=== PATIENT | male | born 1945 | race Caucasian/White ===

== ENCOUNTER 2016-08-29 14:24 | Emergency (ER) | payer MEDICARE, OTHER ==
--- NOTE | 2016-08-29 14:54 | ERPHSYRPT ---
- History of Present Illness Time Seen by Provider: 08/29/16 14:50 Source: patient Exam Limitations: no limitations Patient Subjective Stated Complaint: pt here for high b/p 149/87 at home, and states he feels dizzy. worse when moves, Triage Nursing Assessment: pt walked in with cane, skin w/d ,resp easy, no edema noted, moves all ext well.pain to right side of chest, Physician History: The patient is a 71-year-old male complains of feeling woozy and dizzy for the last couple of days. He has taken his blood pressure over the past few days and last night and this morning he thinks is elevated. He shows me a paper where his blood pressures in the 140s over 70s. He does take high blood pressure medicine. For the last 10 days he has been taking Bactrim that was prescribed by urologist. He had blood work recently by his primary care physician and his PSA was elevated. He saw a urologist who did a ultrasound of his prostate and a urinalysis. No abnormality was found but the urologist decided to place him on tamsulosin and Bactrim. He stopped the tamsulosin 5 days ago and is still experience the dizziness. His past medical history is significant for anxiety, high cholesterol, GERD, and hypertension. Timing/Duration: day(s) (few) Severity: mild Modifying Factors: Improves With: nothing Associated Symptoms: other (woozy) Allergies/Adverse Reactions: No Known Drug Allergies Allergy (Verified 08/29/16 14:34) Home Medications: Alprazolam 0.5 mg PO TIDPRN 09/07/13 [History] Amlodipine Besylate 5 mg [Norvasc 5 mg] 5 mg PO DAILY 09/07/13 [History] Aspirin 81 mg PO DAILY 09/07/13 [History] Lisinopril [Zestril 40 mg] 10 mg PO BID 09/07/13 [History] Omeprazole [Prilosec] 40 mg PO DAILY 09/07/13 [History] Pravastatin Sodium 10 mg PO HS 09/07/13 [History] Carvedilol 6.25 mg [Coreg 6.25 MG] 6.25 mg BID 08/29/16 [History] Hydralazine HCl 25 mg TID 08/29/16 [History] Sulfamethoxazole/Trimethoprim [Bactrim Ds Tablet] 1 ea BID 08/29/16 [History] Tramadol HCl [Ultram] 50 mg BID 08/29/16 [History] Hx Tetanus, Diphtheria Vaccination/Date Given: No Hx Influenza Vaccination/Date Given: Yes Hx Pneumococcal Vaccination/Date Given: Yes Immunizations Up to Date: Yes - Review of Systems Constitutional: No Fever, No Chills Eyes: No Symptoms Ears, Nose, & Throat: No Symptoms Respiratory: No Cough, No Dyspnea Cardiac: No Chest Pain, No Edema, No Syncope Abdominal/Gastrointestinal: No Abdominal Pain, No Nausea, No Vomiting, No Diarrhea Genitourinary Symptoms: No Dysuria Musculoskeletal: No Back Pain, No Neck Pain Skin: No Rash Neurological: Dizziness Psychological: No Symptoms Endocrine: No Symptoms Hematologic/Lymphatic: No Symptoms Immunological/Allergic: No Symptoms All Other Systems: Reviewed and Negative - Past Medical History Pertinent Past Medical History: Yes Neurological History: TIA ENT History: No Pertinent History Cardiac History: Hypertension Respiratory History: No Pertinent History Endocrine Medical History: No Pertinent History Musculoskeletal History: Osteoarthritis GI Medical History: No Pertinent History History: No Pertinent History Psycho-Social History: No Pertinent History Male Reproductive Disorders: No Pertinent History - Past Surgical History Past Surgical History: Yes Neuro Surgical History: No Pertinent History Cardiac: No Pertinent History Respiratory: No Pertinent History Gastrointestinal: No Pertinent History Genitourinary: No Pertinent History Musculoskeletal: Orthopedic Surgery Male Surgical History: No Pertinent History Other Surgical History: TONSILLECTOMY - Social History Smoking Status: Current some day smoker How long have you smoked: 30 Exposure to second hand smoke: Yes Alcohol Use: Socially Drug Use: none Patient Lives Alone: No Significant Family History: hypertension - Nursing Vital Signs Nursing Vital Signs: Initial Vital Signs Temperature 98.4 F Temperature Source Oral Pulse Rate 53 Respiratory Rate 16 Blood Pressure [Right Arm] 106/67 Pain Intensity 0 - Physical Exam General Appearance: no apparent distress, alert Eye Exam: PERRL/EOMI, eyes nml inspection Ears, Nose, Throat Exam: normal ENT inspection, TMs normal, pharynx normal, moist mucous membranes Neck Exam: normal inspection, non-tender, supple, full range of motion Respiratory Exam: normal breath sounds, lungs clear, No respiratory distress Cardiovascular Exam: regular rate/rhythm, normal heart sounds, normal peripheral pulses Gastrointestinal/Abdomen Exam: soft, normal bowel sounds, No tenderness, No mass Rectal Exam: not done Back Exam: normal inspection, normal range of motion, No CVA tenderness, No vertebral tenderness Extremity Exam: normal inspection, normal range of motion, pelvis stable Neurologic Exam: alert, oriented x 3, cooperative, normal mood/affect, nml cerebellar function, nml station & gait, sensation nml, No motor deficits Skin Exam: normal color, warm, dry, No rash Lymphatic Exam: No adenopathy SpO2 Interpretation: normal SpO2: 96 Oxygen Delivery: Room Air Ordered Tests: Active Orders 24 hr Category Date Time Status BMP Stat Lab 08/29/16 15:10 Completed CBC W DIFF Stat Lab 08/29/16 15:10 Completed UA Stat Lab 08/29/16 16:00 Completed Lab/Rad Data: Laboratory Result Diagrams 08/29/16 15:10 08/29/16 15:10 Laboratory Results 08/29/16 08/29/16 08/29/16 Range/Units 16:00 15:10 15:10 WBC 4.0 (4.0-10.5) K/mm3 RBC 4.00 L (4.1-5.6) M/mm3 Hgb 11.7 L (12.5-18.0) gm/dl Hct 35.1 L (42-50) % MCV 87.8 (78-100) fl MCH 29.2 (26-32) pg MCHC 33.3 (32-36) g/dl RDW 12.9 (11.5-14.0) % Plt Count 190 (150-450) K/mm3 MPV 9.9 H (6-9.5) fl Gran % 48.6 (36.0-66.0) % Lymphocytes % 41.8 (24.0-44.0) % Monocytes % 7.8 (0.0-12.0) % Eosinophils % 1.3 (0.00-5.0) % Basophils % 0.5 (0.0-0.4) % Basophils # 0.02 (0-0.4) Sodium 137 (136-145) mEq/L Potassium 3.7 (3.5-5.1) mEq/L Chloride 105 (98-107) mEq/L Carbon Dioxide 27.2 (21-32) mEq/L Anion Gap 8.3 (5-15) MEQ/L BUN 15 (9-20) mg/dL Creatinine 1.16 (0.55-1.30) mg/dl Estimated GFR > 60 ML/MIN Glucose 116 H (70-110) MG/DL Calcium 8.9 (8.5-10.1) mg/dL Ur Collection Type VOID Urine Color YELLOW (YELLOW) Urine Appearance CLEAR (CLEAR) Urine pH 6.5 (5-6) Ur Specific [place] 1.010 (1.005-1.025) Urine Protein NEGATIVE (Negative) Urine Glucose (UA) NEGATIVE (NEGATIVE) mg/dL Urine Ketones NEGATIVE (NEGATIVE) Urine Nitrite NEGATIVE (NEGATIVE) Urine Bilirubin NEGATIVE (NEGATIVE) Urine Urobilinogen 0.2 (0-1) mg/dL Urine WBC (Auto) NEGATIVE (NEGATIVE) Urine RBC (Auto) NEGATIVE (0-5) Josh/ul Specimen Received 08/29/16 1600 - Progress Progress: unchanged Counseled pt/family regarding: lab results, diagnosis - Departure Time of Disposition: 16:49 Departure Disposition: Home Clinical Impression: Dizziness Condition: Stable Critical Care Time: No Additional Instructions: Your dizziness may be due to the antibiotic Bactrim that you are taking. I want you to stop taking Bactrim and begin taking ciprofloxacin 500 mg twice a day for 7 days. Your laboratory results were all within normal limits today. Follow-up with the urologist as scheduled. Prescriptions: Ciprofloxacin [Cipro 500 MG] 1 tab PO BID #14 tablet
[2016-08-29 15:18] LABS: BASOPHIL % 0.5 % (0.0-0.4); Eosinophil % 1.3 % (0.00-5.0); Granulocytes % 48.6 % (36.0-66.0); Lymphocytes % 41.8 % (24.0-44.0); Mean Cell Volume 87.8 fl (78-100); Mean Platelet Volume 9.9 fl (6-9.5); Monocytes % 7.8 % (0.0-12.0); Platelet Count 190 K/mm3 (150-450); Red Cell Distribution Width 12.9 % (11.5-14.0)
[2016-08-29 15:19] LABS: Mean Corpuscular Hemoglobin 29.2 pg (26-32)
[2016-08-29 15:38] LABS: ANION GAP 8.3 MEQ/L (5-15); BLOOD UREA NITROGEN 15 mg/dL (9-20); CHLORIDE 105 mEq/L (98-107); Carbon Dioxide 27.2 mEq/L (21-32); Glucose 116 MG/DL (70-110); Potassium 3.7 mEq/L (3.5-5.1); SODIUM 137 mEq/L (136-145)
[2016-08-29 16:16] LABS: COMPLETE URINE MICROSCOPIC? NO; Collection Type VOID; Ph 6.5 (5-6)
[2016-08-29 16:57] VITALS: BP 133/71; PULSE 58; O2SAT 98
== END 2016-08-29 17:02 | disposition home or self-care (01) ==
LOC: ED 14:24
DX: R42 Dizziness and giddiness (principal); E78.00 Pure hypercholesterolemia, unspecified; I10 Essential (primary) hypertension; K21.9 Gastro-esophageal reflux disease without esophagitis; Z79.899 Other long term (current) drug therapy
CPT/HCPCS: 36415; 80048; 81002; 85025; 99283

== ENCOUNTER 2016-10-04 11:09 | Emergency (ER) | payer MEDICARE, OTHER ==
--- NOTE | 2016-10-04 11:43 | ERPHSYRPT ---
- History of Present Illness Time Seen by Provider: 10/04/16 11:29 Source: patient Exam Limitations: no limitations Patient Subjective Stated Complaint: pt states he checked his blood pressure this morning at got a reading of 174/96. Pt states he has since rechecked his blood pressure at home and it was 155.76. pt denies any pain. states he took hi blood pressure pill this morning. Triage Nursing Assessment: pt pink, warm, dry. pt ambulated into ER without difficulty. Physician History: SINCE LAST NIGHT PT HAS HAD A SORE THROAT AND RIGHT EARACHE. ABOUT 3.5 HOURS AGO PT TOOK HIS BP AND IT WAS 174/96. PT DENIES CHEST PAIN, SHORTNESS OF AIR, NAUSEA, ABDOMINAL PAIN. Allergies/Adverse Reactions: No Known Drug Allergies Allergy (Verified 08/29/16 14:34) Home Medications: Alprazolam 0.25 mg PO TIDPRN 09/07/13 [History] Amlodipine Besylate 5 mg [Norvasc 5 mg] 5 mg PO DAILY 09/07/13 [History] Aspirin 81 mg PO DAILY 09/07/13 [History] Lisinopril [Zestril 40 mg] 10 mg PO BID 09/07/13 [History] Omeprazole [Prilosec] 40 mg PO DAILY 09/07/13 [History] Pravastatin Sodium 10 mg PO HS 09/07/13 [History] Carvedilol 6.25 mg [Coreg 6.25 MG] 6.25 mg BID 08/29/16 [History] Hydralazine HCl 25 mg TID 08/29/16 [History] Tramadol HCl [Ultram] 50 mg BID 08/29/16 [History] Hx Tetanus, Diphtheria Vaccination/Date Given: Yes (up to date) Hx Influenza Vaccination/Date Given: Yes Hx Pneumococcal Vaccination/Date Given: Yes Immunizations Up to Date: Yes - Review of Systems Constitutional: No Fever Ears, Nose, & Throat: Ear Pain (RIGHT), Throat Pain Respiratory: No Dyspnea Cardiac: No Chest Pain Abdominal/Gastrointestinal: No Abdominal Pain, No Nausea, No Vomiting Neurological: No Headache Endocrine: No Excessive Sweating All Other Systems: Reviewed and Negative - Past Medical History Pertinent Past Medical History: Yes Neurological History: TIA ENT History: No Pertinent History Cardiac History: Hypertension Respiratory History: No Pertinent History Endocrine Medical History: No Pertinent History Musculoskeletal History: Osteoarthritis GI Medical History: No Pertinent History History: No Pertinent History Psycho-Social History: No Pertinent History Male Reproductive Disorders: No Pertinent History - Past Surgical History Past Surgical History: Yes Neuro Surgical History: No Pertinent History Cardiac: No Pertinent History Respiratory: No Pertinent History Gastrointestinal: No Pertinent History Genitourinary: No Pertinent History Musculoskeletal: Orthopedic Surgery Male Surgical History: No Pertinent History Other Surgical History: TONSILLECTOMY - Social History Smoking Status: Current every day smoker How long have you smoked: 30 Exposure to second hand smoke: Yes Alcohol Use: Socially Drug Use: none Patient Lives Alone: Yes Significant Family History: hypertension - Nursing Vital Signs Nursing Vital Signs: Initial Vital Signs Temperature 98.0 F Temperature Source Oral Pulse Rate 55 Respiratory Rate 18 Blood Pressure [Right Arm] 140/80 Pain Intensity 0 - Physical Exam General Appearance: alert, anxiety Eye Exam: PERRL/EOMI Ears, Nose, Throat Exam: TMs normal, moist mucous membranes, pharyngeal erythema Neck Exam: normal inspection Respiratory Exam: lungs clear Cardiovascular Exam: normal heart sounds Gastrointestinal/Abdomen Exam: soft, normal bowel sounds Back Exam: normal range of motion Extremity Exam: other (RIGHT LEG SHORTER THAN LEFT LEG(ONGOING).), No pedal edema Neurologic Exam: alert, cooperative Skin Exam: warm, dry SpO2 Interpretation: normal SpO2: 97 Oxygen Delivery: Room Air - Course Nursing assessment & vital signs reviewed: Yes - Departure Time of Disposition: 11:44 Departure Disposition: Home Clinical Impression: PHARYNGITIS, ANXIETY Condition: Stable Critical Care Time: No Instructions: Pharyngitis/Tonsillopharyngitis -- Adult Additional Instructions: FOLLOW UP WITH PRIVATE DOCTOR TOMORROW. Prescriptions: Azithromycin 250 mg [Zithromax 250 MG TABLET] 250 mg PO ZPACK #6 tablet
[2016-10-04 11:54] VITALS: BP 126/81; PULSE 78; O2SAT 99
== END 2016-10-04 11:53 | disposition home or self-care (01) ==
LOC: ED 11:09
DX: J02.9 Acute pharyngitis, unspecified (principal); H92.01 Otalgia, right ear; F41.9 Anxiety disorder, unspecified
CPT/HCPCS: 99283

== ENCOUNTER 2017-01-11 13:50 | Emergency (ER) | payer MEDICARE, OTHER ==
--- NOTE | 2017-01-11 14:38 | ERPHSYRPT ---
- History of Present Illness Time Seen by Provider: 01/11/17 14:25 Source: patient Exam Limitations: no limitations Patient Subjective Stated Complaint: Pt states "I took my blood pressure this morning and it was really good but I started to feel bad and I took my pressure again and it was 158/92" Triage Nursing Assessment: Pt alert and oriented X 3, skin pwd. Pt ambulates with assistance from a cane upright steady gait. Pt able to speak in full clear sentences. Physician History: This is a 71-year-old white male with history of TIA, high blood pressure, osteo arthritis. Patient arrives with complaint that he felt dizzy approximately 35 minutes prior to arrival took his blood pressure noted to be 158/90 He states that he had taken his blood pressure medicines prior to arrival He denies any movement disorder. On arrival patient with normal blood pressure patient in no acute distress. Past medical history includes TIA, high blood pressure, osteoarthritis. Past surgical history includes tonsils Timing/Duration: today (35 minutes prior to arriva) Severity: moderate Modifying Factors: Improves With: medication (patient took his blood pressure medications approximately 1-1/2 hour prior to arrival) Associated Symptoms: other (patient states he felt dizzy earlier), No nausea, No vomiting, No abdominal pain, No shortness of breath, No heartburn, No diaphoresis, No cough, No chills, No chest pain, No fever, No headaches, No loss of appetite, No malaise, No rash, No syncope, No seizure, No weakness Allergies/Adverse Reactions: No Known Drug Allergies Allergy (Verified 08/29/16 14:34) Home Medications: Alprazolam 0.25 mg PO TIDPRN 09/07/13 [History] Amlodipine Besylate 5 mg [Norvasc 5 mg] 5 mg PO DAILY 09/07/13 [History] Aspirin 81 mg PO DAILY 09/07/13 [History] Lisinopril [Zestril 40 mg] 10 mg PO BID 09/07/13 [History] Omeprazole [Prilosec] 40 mg PO DAILY 09/07/13 [History] Pravastatin Sodium 10 mg PO HS 09/07/13 [History] Carvedilol 6.25 mg [Coreg 6.25 MG] 6.25 mg BID 08/29/16 [History] Hydralazine HCl 25 mg TID 08/29/16 [History] Tramadol HCl [Ultram] 50 mg BID 08/29/16 [History] Hx Tetanus, Diphtheria Vaccination/Date Given: Yes Hx Influenza Vaccination/Date Given: Yes Hx Pneumococcal Vaccination/Date Given: No Immunizations Up to Date: Yes - Review of Systems Constitutional: No Fever, No Chills Eyes: No Symptoms Ears, Nose, & Throat: No Symptoms Respiratory: No Cough, No Dyspnea Cardiac: No Chest Pain, No Edema, No Syncope Abdominal/Gastrointestinal: No Abdominal Pain, No Nausea, No Vomiting, No Diarrhea Genitourinary Symptoms: No Dysuria Musculoskeletal: No Back Pain, No Neck Pain Skin: No Rash Neurological: Dizziness Psychological: No Symptoms Endocrine: No Symptoms All Other Systems: Reviewed and Negative - Past Medical History Pertinent Past Medical History: Yes Neurological History: TIA ENT History: No Pertinent History Cardiac History: Hypertension Respiratory History: No Pertinent History Endocrine Medical History: No Pertinent History Musculoskeletal History: Osteoarthritis GI Medical History: No Pertinent History History: No Pertinent History Psycho-Social History: No Pertinent History Male Reproductive Disorders: No Pertinent History - Past Surgical History Past Surgical History: Yes Neuro Surgical History: No Pertinent History Cardiac: No Pertinent History Respiratory: No Pertinent History Gastrointestinal: No Pertinent History Genitourinary: No Pertinent History Musculoskeletal: Orthopedic Surgery Male Surgical History: No Pertinent History Other Surgical History: TONSILLECTOMY - Social History Smoking Status: Current every day smoker How long have you smoked: years Exposure to second hand smoke: Yes Alcohol Use: Socially Drug Use: none Patient Lives Alone: Yes Significant Family History: hypertension - Nursing Vital Signs Nursing Vital Signs: Initial Vital Signs Temperature 98.2 F 01/11/17 14:03 Pulse Rate 66 01/11/17 14:03 Respiratory Rate 18 01/11/17 14:03 Blood Pressure 149/85 01/11/17 14:03 O2 Sat by Pulse Oximetry 97 01/11/17 14:03 Pain Scale Pain Intensity 0 - Physical Exam General Appearance: no apparent distress, other (well-developed elderly appearing white male, alert, oriented 3 pleasant and cooperative, in no acute distress) Eye Exam: PERRL/EOMI Ears, Nose, Throat Exam: normal ENT inspection, TMs normal, pharynx normal, moist mucous membranes Neck Exam: normal inspection, non-tender, supple, full range of motion Respiratory Exam: normal breath sounds, lungs clear, No respiratory distress Cardiovascular Exam: regular rate/rhythm, normal heart sounds, normal peripheral pulses Gastrointestinal/Abdomen Exam: soft, normal bowel sounds, No tenderness, No mass Back Exam: normal inspection, normal range of motion, No CVA tenderness, No vertebral tenderness Extremity Exam: normal inspection, normal range of motion, pelvis stable Neurologic Exam: alert, oriented x 3, cooperative, normal mood/affect, nml cerebellar function, nml station & gait, sensation nml, other (patient alert, oriented 3, cranial nerves II throgh XIIintact, soda flaker equal 5 over 5 speech normal no facial droop full range of motion all extremities normal finger to nose no pronator drift sensation intact to all extremities), No motor deficits Skin Exam: normal color, warm, dry, No rash Lymphatic Exam: No adenopathy SpO2 Interpretation: normal (97%) SpO2: 97 Oxygen Delivery: Room Air - Course Nursing assessment & vital signs reviewed: Yes EKG Interpreted by Me: RATE (58 bpm), NORMAL AXIS, Other (EKG: Sinus arrhythmia , 88 bpm, normal axis, no acute ST or T wave changes as December 03, 2015) Ordered Tests: Active Orders 24 hr Category Date Time Status EKG-ER Only STAT Care 01/11/17 14:39 Active Orthostatic Vital Signs STAT Care 01/11/17 14:39 Active CBC W DIFF Stat Lab 01/11/17 15:00 Completed CMP Stat Lab 01/11/17 15:00 Completed Lab/Rad Data: Laboratory Result Diagrams 01/11/17 15:00 01/11/17 15:00 Laboratory Results 01/11/17 01/11/17 Range/Units 15:00 15:00 WBC 4.5 (4.0-10.5) K/mm3 RBC 4.42 (4.1-5.6) M/mm3 Hgb 12.9 (12.5-18.0) gm/dl Hct 38.7 L (42-50) % MCV 87.6 (78-100) fl MCH 29.2 (26-32) pg MCHC 33.3 (32-36) g/dl RDW 13.1 (11.5-14.0) % Plt Count 190 (150-450) K/mm3 MPV 10.3 H (6-9.5) fl Gran % 52.9 (36.0-66.0) % Lymphocytes % 36.6 (24.0-44.0) % Monocytes % 8.0 (0.0-12.0) % Eosinophils % 1.8 (0.00-5.0) % Basophils % 0.7 (0.0-0.4) % Basophils # 0.03 (0-0.4) Sodium 145 (136-145) mEq/L Potassium 3.4 L (3.5-5.1) mEq/L Chloride 109 H (98-107) mEq/L Carbon Dioxide 27.0 (21-32) mEq/L Anion Gap 11.9 (5-15) MEQ/L BUN 12 (9-20) mg/dL Creatinine 0.84 (0.55-1.30) mg/dl Estimated GFR > 60 ML/MIN Glucose 98 (70-110) MG/DL Calcium 8.7 (8.5-10.1) mg/dL Total Bilirubin 0.50 (0.2-1.0) mg/dL AST 15 (15-37) U/L ALT 18 (12-78) U/L Alkaline Phosphatase 66 (46-116) U/L Serum Total Protein 6.6 (6.4-8.2) gm/dL Albumin 3.6 (3.4-5.0) g/dL - Progress Progress: improved Progress Note: 01/11/17 15:51 Patient with no further dizziness labs are normal EKG is no acute changes orthostatic vital signs are normal blood pressure normal will discharge. - Departure Time of Disposition: 15:51 Departure Disposition: Home Clinical Impression: Dizziness, Transient hypertension Condition: Fair Critical Care Time: No Referrals: JOSE SHELTON MD [Primary Care Provider] - Additional Instructions: Return home. Rest. Plenty of fluids. Medications as prescribed by your family doctor. Follow-up with your family doctor. Return for acute distress or for severe symptoms.
[2017-01-11 15:06] LABS: BASOPHIL % 0.7 % (0.0-0.4); Eosinophil % 1.8 % (0.00-5.0); Granulocytes % 52.9 % (36.0-66.0); Lymphocytes % 36.6 % (24.0-44.0); Mean Cell Volume 87.6 fl (78-100); Mean Corpuscular Hemoglobin 29.2 pg (26-32); Mean Platelet Volume 10.3 fl (6-9.5); Platelet Count 190 K/mm3 (150-450); Red Blood Count 4.42 M/mm3 (4.1-5.6); Red Cell Distribution Width 13.1 % (11.5-14.0); White Blood Count 4.5 K/mm3 (4.0-10.5)
[2017-01-11 15:29] LABS: ALBUMIN 3.6 g/dL (3.4-5.0); ALKALINE PHOSPHATASE 66 U/L (46-116); ANION GAP 11.9 MEQ/L (5-15); BLOOD UREA NITROGEN 12 mg/dL (9-20); CHLORIDE 109 mEq/L (98-107); Glucose 98 MG/DL (70-110); Potassium 3.4 mEq/L (3.5-5.1); SGOT/AST 15 U/L (15-37); SGPT/ALT 18 U/L (12-78); SODIUM 145 mEq/L (136-145); Total Protein 6.6 gm/dL (6.4-8.2)
[2017-01-11 15:42] VITALS: O2SAT 97
[2017-01-11 15:59] VITALS: BP 134/78; PULSE 63
== END 2017-01-11 15:57 | disposition home or self-care (01) ==
LOC: ED 13:50
DX: R42 Dizziness and giddiness (principal); I10 Essential (primary) hypertension
CPT/HCPCS: 36415; 80053; 85025; 93005

== ENCOUNTER 2017-04-26 14:05 | Emergency (ER) | payer MEDICARE, OTHER ==
[2017-04-26 14:23] VITALS: O2SAT 98
--- NOTE | 2017-04-26 14:40 | ERPHSYRPT ---
- History of Present Illness Time Seen by Provider: 04/26/17 14:34 Source: patient Exam Limitations: no limitations Patient Subjective Stated Complaint: PT REPORTS HE BECAME UPSET THIS MORNING TOOK HIS BP AT WAS 160/90 SOMETHING AT HOME-DENIES PAIN-DENIES HEADACHE-DENIES NUMBNESS OR TINLGING-DENIES VISUAL CHANGES Triage Nursing Assessment: PT PINK WARM ET [id number] TALKATIVE WITH EASE- RESP EASY ET NONLABORED-RADIAL PULSE REGULAR ET STRONG-ANSWERING ALL QUESTIONS CORRECTLY Physician History: patient presents with high blood pressure. Patient states that he was instructed to go to the ER if his blood pressure is greater than 160/90. Patient had a blood pressure of 162/92 along with mild dizziness. Patient states that his lights went out and he was a little upset at the time. Patient denies any headaches, chest pain, shortness of breath, weakness, palpitations, diaphoresis, nausea, vomiting or diarrhea. Patient also has appointment with his primary care physician in 2 days. States that he did not call his doctor's office before coming to ER. Patient denies any recent illnesses as well Timing/Duration: today Severity: mild Associated Symptoms: other (dizziness), No nausea, No vomiting, No shortness of breath, No heartburn, No diaphoresis, No cough, No chest pain, No headaches, No loss of appetite, No malaise, No syncope, No seizure, No weakness Allergies/Adverse Reactions: No Known Drug Allergies Allergy (Verified 04/26/17 14:24) Home Medications: Alprazolam 0.25 mg PO TIDPRN 09/07/13 [History] Amlodipine Besylate 5 mg [Norvasc 5 mg] 5 mg PO DAILY 09/07/13 [History] Aspirin 81 mg PO DAILY 09/07/13 [History] Lisinopril [Zestril 40 mg] 10 mg PO BID 09/07/13 [History] Omeprazole [Prilosec] 40 mg PO DAILY 09/07/13 [History] Pravastatin Sodium 10 mg PO HS 09/07/13 [History] Carvedilol 6.25 mg [Coreg 6.25 MG] 6.25 mg BID 08/29/16 [History] Hydralazine HCl 25 mg TID 08/29/16 [History] Tramadol HCl [Ultram] 50 mg BID 08/29/16 [History] Hx Tetanus, Diphtheria Vaccination/Date Given: Yes Hx Influenza Vaccination/Date Given: Yes Hx Pneumococcal Vaccination/Date Given: No Immunizations Up to Date: Yes - Review of Systems Constitutional: No Fever, No Chills Eyes: No Symptoms Ears, Nose, & Throat: No Symptoms Respiratory: No Symptoms, No Cough, No Dyspnea Cardiac: No Symptoms, No Chest Pain, No Edema, No Syncope Abdominal/Gastrointestinal: No Symptoms, No Abdominal Pain, No Nausea, No Vomiting, No Diarrhea Genitourinary Symptoms: No Symptoms, No Dysuria Musculoskeletal: No Back Pain, No Neck Pain Skin: No Rash Neurological: Dizziness, No Focal Weakness, No Sensory Changes Psychological: No Symptoms Endocrine: No Symptoms All Other Systems: Reviewed and Negative - Past Medical History Pertinent Past Medical History: Yes Neurological History: TIA ENT History: No Pertinent History Cardiac History: Hypertension Respiratory History: No Pertinent History Endocrine Medical History: No Pertinent History Musculoskeletal History: Osteoarthritis GI Medical History: No Pertinent History History: No Pertinent History Psycho-Social History: No Pertinent History Male Reproductive Disorders: No Pertinent History - Past Surgical History Past Surgical History: Yes Neuro Surgical History: No Pertinent History Cardiac: No Pertinent History Respiratory: No Pertinent History Gastrointestinal: No Pertinent History Genitourinary: No Pertinent History Musculoskeletal: Orthopedic Surgery Male Surgical History: No Pertinent History Other Surgical History: TONSILLECTOMY - Social History Smoking Status: Current every day smoker How long have you smoked: years Exposure to second hand smoke: Yes Alcohol Use: Socially Drug Use: none Patient Lives Alone: Yes Significant Family History: hypertension - Nursing Vital Signs Nursing Vital Signs: Initial Vital Signs Temperature 98.0 F 04/26/17 14:17 Pulse Rate 68 04/26/17 14:17 Respiratory Rate 20 04/26/17 14:17 Blood Pressure 164/90 04/26/17 14:17 O2 Sat by Pulse Oximetry 98 04/26/17 14:17 Pain Scale Pain Intensity 0 - Physical Exam General Appearance: no apparent distress, alert Eye Exam: PERRL/EOMI, eyes nml inspection Ears, Nose, Throat Exam: normal ENT inspection, TMs normal, pharynx normal, moist mucous membranes Neck Exam: normal inspection, non-tender, supple, full range of motion Respiratory Exam: normal breath sounds, lungs clear, No respiratory distress Cardiovascular Exam: regular rate/rhythm, normal heart sounds, normal peripheral pulses Gastrointestinal/Abdomen Exam: soft, normal bowel sounds, No tenderness, No mass Back Exam: normal inspection, normal range of motion, No CVA tenderness, No vertebral tenderness Extremity Exam: normal inspection, normal range of motion, pelvis stable Neurologic Exam: alert, oriented x 3, cooperative, normal mood/affect, nml cerebellar function, nml station & gait, sensation nml, No motor deficits Skin Exam: normal color, warm, dry, No rash Lymphatic Exam: No adenopathy SpO2: 98 Oxygen Delivery: Room Air - Course EKG Interpreted by Me: RATE (63), Sinus Rhythm, NORMAL AXIS, NORMAL INTERVALS, NORMAL QRS, Non-specific ST Changes Ordered Tests: Active Orders 24 hr Category Date Time Status EKG-ER Only STAT Care 04/26/17 14:34 Active - Progress Progress: unchanged Progress Note: 04/26/17 14:38 Will obtain EKG. Patient blood pressure remain in 160 over 90s. Explained to patient that I would not adjust his blood pressure medicine. Also explained to patient that his pressure will fluctuate throughout the day. I would like for his doctor's to adjust his blood pressure medicines accordingly. 04/26/17 15:14 patient continues to be asymptomatic in ED. Will discharge patient with follow- up to his regular doctor. Patient also instructed to return for any headaches, chest pain, palpitations, shortness of breath or any problems. Counseled pt/family regarding: diagnosis - Departure Time of Disposition: 15:15 Departure Disposition: Home Clinical Impression: Hypertension Condition: Stable Critical Care Time: No Referrals: JOSE SHELTON MD [Primary Care Provider] - Instructions: High Blood Pressure (DC) Additional Instructions: Return for any headaches, chest pain, palpitations, shortness of breath or any problems. Follow-up with your doctor as directed
[2017-04-26 15:13] VITALS: BP 147/70; PULSE 55
== END 2017-04-26 16:34 | disposition home or self-care (01) ==
LOC: ED 14:05
DX: I10 Essential (primary) hypertension (principal); Z79.899 Other long term (current) drug therapy
CPT/HCPCS: 93005; 99283

== ENCOUNTER 2017-06-12 13:35 | Emergency (ER) | payer MEDICARE, OTHER ==
[2017-06-12] MEDS ORDERED: TYLENOL 325 MG PO ONE (13:54)
[2017-06-12 13:57] VITALS: BP 155/92; PULSE 78; O2SAT 96
--- NOTE | 2017-06-12 14:00 | ERPHSYRPT ---
- History of Present Illness Time Seen by Provider: 06/12/17 13:49 Source: patient Physician History: CC: fall Hx: 72 y/o patient of Dr Shelton fell while walking on a hill at home. Uses a cane and slipped. He hit the right chest and ribs and has pain in the right ribs. Not short of breath. No other injuries. No abd pain. No head injury or DURON. No neck or back pain. No N/T/W. He did not have syncope. Pain is moderate. He takes BP meds but no blood thinners. Occurred: just prior to arrival Loss of Consciousness: no loss of consciousness Allergies/Adverse Reactions: No Known Drug Allergies Allergy (Verified 06/12/17 13:57) Home Medications: Alprazolam 0.25 mg PO TIDPRN 09/07/13 [History] Amlodipine Besylate 5 mg [Norvasc 5 mg] 5 mg PO DAILY 09/07/13 [History] Aspirin 81 mg PO DAILY 09/07/13 [History] Lisinopril [Zestril 40 mg] 10 mg PO BID 09/07/13 [History] Omeprazole [Prilosec] 40 mg PO DAILY 09/07/13 [History] Pravastatin Sodium 10 mg PO HS 09/07/13 [History] Carvedilol 6.25 mg [Coreg 6.25 MG] 6.25 mg BID 08/29/16 [History] Hydralazine HCl 25 mg TID 08/29/16 [History] Tramadol HCl [Ultram] 50 mg BID 08/29/16 [History] Hx Tetanus, Diphtheria Vaccination/Date Given: Yes Hx Influenza Vaccination/Date Given: Yes Hx Pneumococcal Vaccination/Date Given: No - Review of Systems Constitutional: No Symptoms Eyes: No Vision Changes Respiratory: No Cough, No Dyspnea Cardiac: Chest Pain (right ribs) Abdominal/Gastrointestinal: No Abdominal Pain, No Nausea, No Vomiting Musculoskeletal: Fall, Injury (right ribs), No Back Pain, No Neck Pain Skin: No Rash Neurological: No Focal Weakness, No Headache, No Parasthesia All Other Systems: Reviewed and Negative - Past Medical History Pertinent Past Medical History: Yes Neurological History: TIA ENT History: No Pertinent History Cardiac History: Hypertension Respiratory History: No Pertinent History Endocrine Medical History: No Pertinent History Musculoskeletal History: Osteoarthritis GI Medical History: No Pertinent History History: No Pertinent History Psycho-Social History: No Pertinent History Male Reproductive Disorders: No Pertinent History - Past Surgical History Past Surgical History: Yes Neuro Surgical History: No Pertinent History Cardiac: No Pertinent History Respiratory: No Pertinent History Gastrointestinal: No Pertinent History Genitourinary: No Pertinent History Musculoskeletal: Orthopedic Surgery Male Surgical History: No Pertinent History Other Surgical History: TONSILLECTOMY - Social History Smoking Status: Current every day smoker How long have you smoked: years Exposure to second hand smoke: Yes Alcohol Use: Socially Drug Use: none Patient Lives Alone: Yes Significant Family History: hypertension - Nursing Vital Signs Nursing Vital Signs: Initial Vital Signs Temperature 98.5 F 06/12/17 13:48 Pulse Rate 78 06/12/17 13:48 Respiratory Rate 20 06/12/17 13:48 Blood Pressure 155/92 06/12/17 13:48 O2 Sat by Pulse Oximetry 96 06/12/17 13:48 Pain Scale Pain Intensity 2 - Nikole Coma Score Best Eye Response ([place]): (4) open spontaneously Best Verbal Response ([place]): (5) oriented Best Motor Response ([place]): (6) obeys commands [place] Total: 15 - Physical Exam General Appearance: alert, thin (frail appearing man) Head Injury: no evidence of injury Eye Exam: PERRL/EOMI ENT Exam: airway nml Neck Exam: No mid-line tenderness Respiratory/Chest Exam: chest tenderness (right lateral mid ribs, no crepitus), No decreased breath sounds Cardiovascular Exam: normal heart sounds, regular rate/rhythm Gastrointestinal Exam: soft, No tenderness, No distention Back Exam: normal inspection, normal range of motion, No vertebral tenderness Extremity Exam: normal inspection, normal range of motion Neurologic Exam: alert, oriented x 3, cooperative, sensation nml, No motor deficits Skin Exam: warm, dry, No rash - Course Nursing assessment & vital signs reviewed: Yes - Radiology Exams cxr and right ribs X-ray Interpretation: Teleradiologist Report, Negative, No Fracture, No Pneumothorax Ordered Tests: Active Orders 24 hr Category Date Time Status Cold Application STAT Care 06/12/17 13:54 Active CHEST 2 VIEWS (PA AND LAT) Stat Exams 06/12/17 13:53 Completed RIBS UNILATERAL Stat Exams 06/12/17 13:53 Completed Medication Summary Discontinued Medications Generic Name Dose Route Start Last Admin Trade Name Dang PRN Reason Stop Dose Admin Acetaminophen 650 mg 06/12/17 13:54 06/12/17 14:18 Tylenol 325 Mg PO 06/12/17 13:55 650 mg STAT ONE Administration Acetaminophen Confirm 06/12/17 14:16 Tylenol 325 Mg Administered 06/12/17 14:17 Dose 650 mg .ROUTE .STK-MED ONE - Progress Progress Note: 06/12/17 15:10 APAP given here. Ice pack. He has a cane. Will release with instructions. Counseled pt/family regarding: diagnosis, need for follow-up, rad results - Departure Time of Disposition: 15:10 Departure Disposition: Home Clinical Impression: Fall from ground level Contusion of rib on right side Qualifiers: Encounter type: initial encounter Qualified Code(s): S20.211A - Contusion of right front wall of thorax, initial encounter Condition: Stable Critical Care Time: No Referrals: JOSE SHELTON MD [Primary Care Provider] - Instructions: Bruised Rib, Preventing Falls Additional Instructions: SPRAINS/STRAINS/CONTUSIONS 1. Rest the affected area as much as possible for the next few days. 2. Apply ice to the affected area for 20-30 minutes at a time, several times a day. 3. If you receive an elastic wrap, wear it only while awake for comfort and support. Re-wrap the elastic wrap if it feels too tight or too loose. 4. If swelling is present, elevate the affected part above the level of the heart for at least 2 to 3 days. 5. Use splints, slings, or crutches as instructed. 6. Watch for severe swelling, coldness, numbness, and discoloration of the fingers and toes. See your family physician or return to the emergency department if any of these are noted. Follow up with Dr Shelton next week. Take your normal pain pill as already prescribed. Ice packs off and on. Return for difficulty breathing or concerns.
[2017-06-12] MEDS ORDERED: TYLENOL 325 MG ONE (14:16)
--- NOTE | 2017-06-12 14:45 | XRAY ---
Indication: Right-sided pain following fall. Comparison: December 03, 2015. PA/lateral chest remains hyperinflated and clear again with a few incidental calcified granulomas. Heart is not enlarged. Descending aorta remains tortuous. Bony thorax intact again with mild osteopenia and degenerative changes. Impression: Stable nonacute hyperinflated chest with chronic features.
--- NOTE | 2017-06-12 14:45 | XRAY ---
Indication: Pain following fall. Comparison: September 27, 2013. 2 views of the right ribs again demonstrates mild osteopenia, mild multilevel spinal degenerative spondylosis, and right apical calcified granuloma. No other bony, articular, or soft tissue abnormalities.
== END 2017-06-12 15:18 | disposition home or self-care (01) ==
LOC: ED 13:35
DX: S20.211A Contusion of right front wall of thorax, initial encounter (principal); W18.30XA Fall on same level, unspecified, initial encounter; Y93.01 Activity, walking, marching and hiking; Z79.899 Other long term (current) drug therapy
CPT/HCPCS: 71046; 71100; 99283; A9270-GY

== ENCOUNTER 2017-06-24 13:47 | Emergency (ER) | payer MEDICARE, OTHER ==
[2017-06-24 14:32] VITALS: PULSE 68; O2SAT 98
[2017-06-24 14:37] VITALS: BP 142/76
--- NOTE | 2017-06-24 14:40 | ERPHSYRPT ---
- History of Present Illness Time Seen by Provider: 06/24/17 13:54 Source: patient, family (sister) Patient Subjective Stated Complaint: patietn states he has been having high blood pressure since he started new ant depressant Triage Nursing Assessment: pt alert and orietned x3, able to ambulate with cane , prior injury to left knee wearing brace, barrel chested lung sounds clear, diminished. skin warm dry and intact Physician History: CC: high blood pressure Hx: 72 y/o patient of Dr Shelton and Kwabena. He saw Dr Shelton for awellness check Monday and was prescribed paroxetine. He felt like side effects so called the office and has not taken anymore medication. He has been checking his BP and it has been more and more elevated. Today it was 154/104 so he came to the hospital to have it checked. He has no confusion. Slight headache. No chest pain. Old right rib pain still. No N/V. No fever. He felt some dizziness. He was worried about BP. He has the medication side effect list and has underlined them. Timing/Duration: today Allergies/Adverse Reactions: No Known Drug Allergies Allergy (Verified 06/12/17 13:57) Home Medications: Alprazolam 0.25 mg PO TIDPRN 09/07/13 [History] Amlodipine Besylate 5 mg [Norvasc 5 mg] 5 mg PO DAILY 09/07/13 [History] Aspirin 81 mg PO DAILY 09/07/13 [History] Lisinopril [Zestril 40 mg] 10 mg PO BID 09/07/13 [History] Omeprazole [Prilosec] 40 mg PO DAILY 09/07/13 [History] Pravastatin Sodium 10 mg PO HS 09/07/13 [History] Carvedilol 6.25 mg [Coreg 6.25 MG] 6.25 mg BID 08/29/16 [History] Hydralazine HCl 25 mg TID 08/29/16 [History] Tramadol HCl [Ultram] 50 mg BID 08/29/16 [History] Hx Tetanus, Diphtheria Vaccination/Date Given: Yes Hx Influenza Vaccination/Date Given: Yes Hx Pneumococcal Vaccination/Date Given: Yes Immunizations Up to Date: Yes - Review of Systems Constitutional: No Fever, No Chills Eyes: No Vision Changes Ears, Nose, & Throat: No Symptoms Respiratory: No Dyspnea Cardiac: No Chest Pain, No Syncope Abdominal/Gastrointestinal: No Abdominal Pain, No Nausea, No Vomiting Neurological: Headache (slight), No Gait Changes All Other Systems: Reviewed and Negative - Past Medical History Pertinent Past Medical History: Yes Neurological History: TIA ENT History: No Pertinent History Cardiac History: Hypertension Respiratory History: No Pertinent History Endocrine Medical History: No Pertinent History Musculoskeletal History: Osteoarthritis GI Medical History: No Pertinent History History: No Pertinent History Psycho-Social History: No Pertinent History Male Reproductive Disorders: No Pertinent History - Past Surgical History Past Surgical History: Yes Neuro Surgical History: No Pertinent History Cardiac: No Pertinent History Respiratory: No Pertinent History Gastrointestinal: No Pertinent History Genitourinary: No Pertinent History Musculoskeletal: Orthopedic Surgery Male Surgical History: No Pertinent History Other Surgical History: TONSILLECTOMY - Social History Smoking Status: Current some day smoker How long have you smoked: years Exposure to second hand smoke: Yes Alcohol Use: Socially Drug Use: none Patient Lives Alone: Yes (close family support, likes to sit in recliner and watch history channel to) Significant Family History: hypertension - Nursing Vital Signs Nursing Vital Signs: Initial Vital Signs Temperature 97.4 F 06/24/17 13:48 Pulse Rate 71 06/24/17 13:48 Respiratory Rate 20 06/24/17 13:48 Blood Pressure 161/83 06/24/17 13:48 O2 Sat by Pulse Oximetry 99 06/24/17 13:48 Pain Scale Pain Intensity 0 - Physical Exam General Appearance: alert, thin, other (elderly man, ambulatory with a cane) Eye Exam: PERRL/EOMI Ears, Nose, Throat Exam: normal ENT inspection, moist mucous membranes Neck Exam: normal inspection, non-tender, supple Respiratory Exam: normal breath sounds, No chest tenderness Cardiovascular Exam: regular rate/rhythm Gastrointestinal/Abdomen Exam: soft, No tenderness, No distention Neurologic Exam: alert, oriented x 3, cooperative, chief engineer research II-XII nml as tested, sensation nml, No motor deficits Skin Exam: warm, dry, No rash SpO2 Interpretation: normal SpO2: 98 Oxygen Delivery: Room Air - Course Nursing assessment & vital signs reviewed: Yes - Progress Progress Note: 06/24/17 14:38 BP better here. He will stay off the depression pill until he sees Dr Shelton. Advised to check BP twice a day and write it in a book to take to Dr Shelton. Offered EKG, CBC, BMP but he now declines. Discussed hypertension management and symptoms with pt and daughter. They plan to follow up with Dr Shelton. Counseled pt/family regarding: diagnosis, need for follow-up - Departure Time of Disposition: 14:39 Departure Disposition: Home Clinical Impression: Hypertension Qualifiers: Hypertension type: essential hypertension Qualified Code(s): I10 - Essential ( primary) hypertension Condition: Stable Critical Care Time: No Referrals: JOSE SHELTON MD [Primary Care Provider] - Instructions: High Blood Pressure (DC), Controlling Your Blood Pressure Through Lifestyle Additional Instructions: Take your normal medications. Follow up next week with Dr Shelton. Return for problems or concerns.
== END 2017-06-24 14:53 | disposition home or self-care (01) ==
LOC: ED 13:47
DX: I10 Essential (primary) hypertension (principal); Z79.899 Other long term (current) drug therapy
CPT/HCPCS: 99282

== ENCOUNTER 2019-11-20 12:37 | Emergency (ER) | payer MEDICARE, OTHER ==
[2019-11-20 12:51] VITALS: BP 170/94; PULSE 72; O2SAT 98
--- NOTE | 2019-11-20 13:04 | ERPHSYRPT ---
- History of Present Illness Time Seen by Provider: 11/20/19 12:55 Source: patient, family Exam Limitations: no limitations Patient Subjective Stated Complaint: Pt states "I fell this morning and hurt my left wrist." Triage Nursing Assessment: Pt presented alert and oriented X 3, skin pwd Pt ambultes with assistance, pt uses cane, pt is on hospice and they came and took an x ray and stated he has a broken wrist, report faxed to ED. Physician History: 44 years old male with history of atrial fibrillation on oral anticoagulation, multiple strokes in the past, difficulty ambulation at baseline, on hospice presented in the ER with chief complaint of left wrist pain after he fell this morning. 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 Did not hit his head. No loss of consciousness. This happened around 7:30 AM, x-rays showed minimally displaced distal left ulna fracture per x-rays from hospice. Pain is mild to moderate intensity, feeling better after taking tramadol which she has at home. More with movements/palpation. No difficulty movements of fingers are numbness or weakness. No open wound. No injury anywhere else. Occurred: this morning Method of Injury: fell Quality: constant Severity of Pain-Max: moderate Severity of Pain-Current: mild Extremities Pain Location: wrist: left Modifying Factors: Improves With: immobilization, movement, pain medication Associated Symptoms: none Allergies/Adverse Reactions: No Known Drug Allergies Allergy (Verified 06/12/17 13:57) Home Medications: Alprazolam 0.25 mg PO TIDPRN 09/07/13 [History] Amlodipine Besylate 5 mg [Norvasc 5 mg] 5 mg PO DAILY 09/07/13 [History] Omeprazole [Prilosec] 40 mg PO DAILY 09/07/13 [History] Pravastatin Sodium 10 mg PO HS 09/07/13 [History] lisinopriL [Zestril 40 mg] 10 mg PO BID 09/07/13 [History] Carvedilol 6.25 mg [Coreg 6.25 MG] 6.25 mg BID 08/29/16 [History] Hydralazine HCl 25 mg TID 08/29/16 [History] Tramadol HCl [Ultram] 50 mg BID 08/29/16 [History] Apixaban [Eliquis] 5 mg PO DAILY 11/20/19 [History] Hx Tetanus, Diphtheria Vaccination/Date Given: Yes Hx Influenza Vaccination/Date Given: Yes Hx Pneumococcal Vaccination/Date Given: Yes Immunizations Up to Date: Yes Travel Risk - International Travel Have you traveled outside of the country in past 3 weeks: No - Coronavirus Screening Are you exhibiting any of the following symptoms?: No Close contact with a COVID-19 positive Pt in past 14-21 Days: No - Review of Systems Constitutional: No Symptoms Eyes: No Symptoms Ears, Nose, & Throat: No Symptoms Respiratory: No Symptoms Cardiac: No Symptoms Abdominal/Gastrointestinal: No Symptoms Musculoskeletal: Injury, Joint Redness, Joint Pain Skin: No Symptoms Neurological: No Symptoms Psychological: No Symptoms Endocrine: No Symptoms Hematologic/Lymphatic: No Symptoms Immunological/Allergic: No Symptoms - Past Medical History Pertinent Past Medical History: Yes Neurological History: TIA ENT History: No Pertinent History Cardiac History: Hypertension Respiratory History: No Pertinent History Endocrine Medical History: No Pertinent History Musculoskeletal History: Osteoarthritis GI Medical History: No Pertinent History History: No Pertinent History Psycho-Social History: No Pertinent History Male Reproductive Disorders: No Pertinent History - Past Surgical History Past Surgical History: Yes Neuro Surgical History: No Pertinent History Cardiac: No Pertinent History Respiratory: No Pertinent History Gastrointestinal: No Pertinent History Genitourinary: No Pertinent History Musculoskeletal: Orthopedic Surgery Male Surgical History: No Pertinent History Other Surgical History: TONSILLECTOMY - Social History Smoking Status: Current every day smoker How long have you smoked: years Exposure to second hand smoke: Yes Alcohol Use: Socially Drug Use: none Patient Lives Alone: Yes Significant Family History: hypertension - Nursing Vital Signs Nursing Vital Signs: Initial Vital Signs Temperature 98.2 F 11/20/19 12:46 Pulse Rate 72 11/20/19 12:46 Respiratory Rate 20 11/20/19 12:46 Blood Pressure 170/94 11/20/19 12:46 O2 Sat by Pulse Oximetry 98 11/20/19 12:46 Pain Scale Pain Intensity 5 - Physical Exam General Appearance: no apparent distress, alert Eyes, Ears, Nose, Throat Exam: normal ENT inspection, TMs normal, pharynx normal Neck Exam: normal inspection, non-tender, supple, full range of motion Cardiovascular/Respiratory Exam: chest non-tender, normal breath sounds, regular rate/rhythm Abdominal Exam: non-tender, soft Back Exam: normal inspection Shoulder Exam: normal inspection Wrist Exam: bone tenderness, limited ROM (Left wrist. Area of swelling tenderness proximal to wrist on the medial aspect with bony tenderness. No crepitus. Intact range of motion at fingers. Limited movement at wrist), pain, soft tissue tenderness, swelling Hand Exam: normal inspection Neuro/Tendon Exam: normal sensation, normal motor functions Mental Status Exam: alert, oriented x 3, cooperative Skin Exam: normal color SpO2 Interpretation: normal SpO2: 98 O2 Delivery: Room Air - Course Nursing assessment & vital signs reviewed: Yes Ordered Tests: Medication Summary Discontinued Medications Generic Name Dose Route Start Last Admin Trade Name Dang PRN Reason Stop Dose Admin Hydrocodone Bitart/Acetaminophen 1 tab 11/20/19 12:59 11/20/19 13:12 [place] 5/325 Mg PO 11/20/19 13:00 1 tab STAT ONE Administration Hydrocodone Bitart/Acetaminophen Confirm 11/20/19 13:11 [place] 5/325 Mg Administered 11/20/19 13:12 Dose 1 tab .ROUTE .STK-MED ONE - Progress Progress: pain not gone completely Progress Note: 11/20/19 13:09 Has a distal ulna fracture with minimal displacement. Commended sugar tong splint but Ortho clinic did not want anything but Velcro splint and will ruperto luate patient in the office. Recommended continue with pain medication and outpatient orthopedic surgery follow-up. No injury anywhere else. Do not think needs any imaging and is stable for discharge. Counseled pt/family regarding: diagnosis, need for follow-up - Departure Departure Disposition: Home Clinical Impression: Ulna distal fracture Qualifiers: Encounter type: initial encounter Fracture type: closed Fracture morphology: unspecified fracture morphology Laterality: left Qualified Code(s): S52.602A - Unspecified fracture of lower end of left ulna, initial encounter for closed fracture Condition: Stable Critical Care Time: No Referrals: JOSE SHELTON MD [Primary Care Provider] - Follow Up with PCP/3 days MARGIE AGGARWAL NP [NON-STAFF PHY W/O PRIVILEGES] - (Call today for appointment) Instructions: Forearm Fracture (DC) Additional Instructions: Take pain medications which you have at home as needed. Follow-up with orthopedic surgery for reevaluation. Return to ER for any worsening.
[2019-11-20] MEDS ORDERED: NORCO 5/325 MG ONE (13:11)
[2019-11-20] MEDS: NORCO 5/325 MG PO ONE (13:12)
== END 2019-11-20 13:36 | disposition home or self-care (01) ==
LOC: ED 12:37
DX: S52.602A Unspecified fracture of lower end of left ulna, initial encounter for closed fracture (principal); W19.XXXA Unspecified fall, initial encounter; Y93.9 Activity, unspecified; Y92.9 Unspecified place or not applicable; Y99.9 Unspecified external cause status; I10 Essential (primary) hypertension; Z79.01 Long term (current) use of anticoagulants; Z79.899 Other long term (current) drug therapy; Z86.79 Personal history of other diseases of the circulatory system; Z72.0 Tobacco use
CPT/HCPCS: 99283; A9270-GY

== ENCOUNTER 2020-10-27 16:58 | Emergency (ER) | payer MEDICARE, OTHER ==
--- NOTE | 2020-10-27 17:04 | ERPHSYRPT ---
- History of Present Illness Source: patient, EMS Exam Limitations: no limitations Associated Symptoms: abdominal pain, other (Low back pain), No nausea, No vomiting Hx Tetanus, Diphtheria Vaccination/Date Given: Yes Hx Influenza Vaccination/Date Given: Yes Hx Pneumococcal Vaccination/Date Given: Yes - History of Present Illness Time Seen by Provider: 10/27/20 17:04 Physician History: The patient is a 75-year-old male with a past medical history significant for atrial fibrillation, bilateral lower extremity weakness, left knee pain for which he wears a knee brace, hip surgery when he was a teenager 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 Of note, the patient is coming from home and was transported by EMS to the emergency department. He reportedly was picking up a bag of trash last Monday when he felt worsening pain in his back. The pain is reportedly severe and increases when he bends or twists his torso and primarily located to the lumbar spine. He also endorsed having lower extremity weakness. He does walk with a walker and a cane and uses a wheelchair to assist with mobility around his home. He lives with his daughter. He denies fever, chills, recent falls or traumatic injury, bladder incontinence, any known history of immunosuppression, numbness or tingling of his lower extremities. Takes [place] at night for pain in addition to the morning and has not had his evening dose. (YURI ADAMS) Allergies/Adverse Reactions: No Known Drug Allergies Allergy (Verified 06/12/17 13:57) Home Medications: Alprazolam 0.25 mg PO TIDPRN 09/07/13 [History] Amlodipine Besylate 5 mg [Norvasc 5 mg] 5 mg PO DAILY 09/07/13 [History] Omeprazole [Prilosec] 40 mg PO DAILY 09/07/13 [History] Pravastatin Sodium 10 mg PO HS 09/07/13 [History] lisinopriL [Zestril 40 mg] 10 mg PO BID 09/07/13 [History] Carvedilol 6.25 mg [Coreg 6.25 MG] 6.25 mg BID 08/29/16 [History] Hydralazine HCl 25 mg TID 08/29/16 [History] Apixaban [Eliquis] 5 mg PO BID 11/20/19 [History] Diclofenac Sodium Gel [Voltaren GEL] 2 gm TOP QID 10/27/20 [History] Hydrocodone/Acetaminophen [Hydrocodone-Acetamin 5-325 mg] 5 - 325 mg PO BID 10/27/20 [History] - Review of Systems Constitutional: No Fever, No Chills Abdominal/Gastrointestinal: Abdominal Pain (Abdominal cramping), No Nausea, No Vomiting Musculoskeletal: Back Pain, Other (Lateral knee pain), No Neck Pain, No Deformity, No Fall Skin: No Symptoms Neurological: No Symptoms Psychological: No Symptoms Endocrine: No Symptoms All Other Systems: Reviewed and Negative - Past Medical History Pertinent Past Medical History: Yes Neurological History: TIA ENT History: No Pertinent History Cardiac History: Hypertension Respiratory History: No Pertinent History Endocrine Medical History: No Pertinent History Musculoskeletal History: Osteoarthritis GI Medical History: No Pertinent History History: No Pertinent History Psycho-Social History: No Pertinent History Male Reproductive Disorders: No Pertinent History - Past Surgical History Past Surgical History: Yes Neuro Surgical History: No Pertinent History Cardiac: No Pertinent History Respiratory: No Pertinent History Gastrointestinal: No Pertinent History Genitourinary: No Pertinent History Musculoskeletal: Orthopedic Surgery Male Surgical History: No Pertinent History Other Surgical History: TONSILLECTOMY - Social History Smoking Status: Current every day smoker How long have you smoked: years Exposure to second hand smoke: Yes Alcohol Use: Socially Drug Use: none Patient Lives Alone: Yes Significant Family History: hypertension - Physical Exam General Appearance: no apparent distress, alert, other (Chronically ill- appearing male) Eye Exam: PERRL/EOMI, eyes nml inspection, No photophobia Ears, Nose, Throat Exam: normal ENT inspection Neck Exam: normal inspection, No JVD Respiratory Exam: normal breath sounds, lungs clear, No chest tenderness, No respiratory distress Cardiovascular Exam: regular rate/rhythm, normal heart sounds, normal peripheral pulses, capillary refill <2 sec, No murmur, No friction rub, No gallop Gastrointestinal/Abdomen Exam: soft, No tenderness, No distention, No mass, No guarding, No pulsatile mass Male Genitalia Exam: normal genitalia Rectal Exam: deferred Back Exam: other (Spine tenderness, crepitus or step-offs. There is no flank ecchymosis. The patient had pain with bending and twisting his torso mainly to the lumbar spine.), No CVA tenderness, No vertebral tenderness, No point tenderness Extremity Exam: other (Right leg was about an inch or 2 shorter than the left. Patient had trace bilateral lower extremity edema. There is no visible injury noted to the feet. Motor function was intact in the feet.) Neurologic Exam: alert, oriented x 3, cooperative Skin Exam: warm, dry, No pale SpO2 Interpretation: normal O2 Delivery: Room Air - Nursing Vital Signs Nursing Vital Signs: Initial Vital Signs Temperature 98.6 F 10/27/20 17:00 Pulse Rate 82 10/27/20 17:00 Respiratory Rate 19 10/27/20 17:00 Blood Pressure 143/60 10/27/20 17:00 O2 Sat by Pulse Oximetry 97 10/27/20 17:00 Pain Scale Pain Intensity [] 4 Pain Intensity 5 - Course Nursing assessment & vital signs reviewed: Yes - CT Exams Abdomen/Pelvis CT Interpretation: Tele-radiologist Report (T12 compression deformity age indeterminate. 6 mm left lower lobe pulmonary nodule, renal cyst) Ordered Tests: Active Orders 24 hr Category Date Time Status Cath for Specimen-Straight STAT Care 10/27/20 17:16 Active IV Insertion STAT Care 10/27/20 17:16 Active ABDOMEN AND PELVIS W CONTRAST [CT] Stat Exams 10/27/20 17:17 Taken BMP Stat Lab 10/27/20 17:53 Completed CBC W DIFF Stat Lab 10/27/20 17:53 Completed CULTURE,URINE Stat Lab 10/27/20 17:52 Received MAGNESIUM Stat Lab 10/27/20 17:18 Completed UA W/RFX UR CULTURE Stat Lab 10/27/20 17:52 Completed Medication Summary Discontinued Medications Generic Name Dose Route Start Last Admin Trade Name Freq PRN Reason Stop Dose Admin Hydrocodone Bitart/Acetaminophen 2 tab 10/27/20 17:18 10/27/20 18:05 [place] 5/325 Mg PO 10/27/20 17:19 2 tab STAT ONE Administration Hydrocodone Bitart/Acetaminophen Confirm 10/27/20 18:03 [place] 5/325 Mg Administered 10/27/20 18:04 Dose 2 tab .ROUTE .STK-MED ONE Magnesium Sulfate/Dextrose Confirm 10/27/20 21:42 Magnesium 1 Gm / 100 Ml D5w Administered 10/27/20 21:43 Dose 200 mls @ ud IV .STK-MED ONE Magnesium Sulfate 1 gm 10/27/20 18:31 10/27/20 22:04 Magnesium Sulfate 1 Gm/2 Ml Vial IV 10/27/20 18:32 Not Given STAT ONE Magnesium Sulfate Confirm 10/27/20 19:40 Magnesium Sulfate 1 Gm/2 Ml Vial Administered 10/27/20 19:41 Dose 1 gm .ROUTE .STK-MED ONE Potassium Chloride 40 meq 10/27/20 18:29 10/27/20 19:46 Klor Con 10 Meq PO 10/27/20 18:30 40 meq STAT ONE Administration Potassium Chloride Confirm 10/27/20 19:40 [place] Con 10 Meq Administered 10/27/20 19:41 Dose 40 meq PO .STK-MED ONE Lab/Rad Data: Laboratory Result Diagrams 10/27/20 17:53 10/27/20 17:53 Laboratory Results 10/27/20 10/27/20 10/27/20 Range/Units 17:53 17:53 17:52 WBC 6.3 (4.0-10.5) K/mm3 RBC 4.33 (4.1-5.6) M/mm3 Hgb 12.3 L (12.5-18.0) gm/dl Hct 38.5 L (42-50) % MCV 88.9 (78-100) fl MCH 28.4 (26-32) pg MCHC 31.9 L (32-36) g/dl RDW 14.3 H (11.5-14.0) % Plt Count 196 (150-450) K/mm3 MPV 9.8 (7.5-11.0) fl Gran % 59.7 (36.0-66.0) % Eos # (Auto) 0.13 (0-0.5) Absolute Lymphs (auto) 1.86 (1.0-4.6) Absolute Monos (auto) 0.53 (0.0-1.3) Lymphocytes % 29.5 (24.0-44.0) % Monocytes % 8.4 (0.0-12.0) % Eosinophils % 2.1 (0.00-5.0) % Basophils % 0.3 (0.0-0.4) % Absolute Granulocytes 3.76 (1.4-6.9) Basophils # 0.02 (0-0.4) Sodium 140 (137-145) mmol/L Potassium 3.0 L* (3.5-5.1) mmol/L Chloride 102 (98-107) mmol/L Carbon Dioxide 30 (22-30) mmol/L Anion Gap 11.0 (5-15) MEQ/L BUN 11 (9-20) mg/dL Creatinine 0.65 L (0.66-1.25) mg/dL Estimated GFR > 60.0 ML/MIN Glucose 87 (74-106) mg/dL Calcium 8.3 L (8.4-10.2) mg/dL Magnesium (1.6-2.3) mg/dL Urine Color COLORLESS (YELLOW) Urine Appearance CLEAR (CLEAR) Urine pH 8.0 (5-6) Ur Specific [place] 1.002 (1.005-1.025) Urine Protein NEGATIVE (Negative) Urine Ketones NEGATIVE (NEGATIVE) Urine Blood MODERATE (0-5) Josh/ul Urine Nitrite NEGATIVE (NEGATIVE) Urine Bilirubin NEGATIVE (NEGATIVE) Urine Urobilinogen NEGATIVE (0-1) mg/dL Ur Leukocyte Esterase NEGATIVE (NEGATIVE) Urine WBC (Auto) 0-2 (0-5) /HPF Urine RBC (Auto) 3-5 (0-2) /HPF U Hyaline Cast (Auto) 0-2 (0-2) /LPF U Epithel Cells (Auto) NONE (FEW) /HPF Urine Bacteria (Auto) NONE SEEN (NEGATIVE) /HPF Urine Culture Reflexed ORDERED SEPARATELY (NO) Urine Glucose NEGATIVE (NEGATIVE) mg/dL 10/27/20 Range/Units 17:18 WBC (4.0-10.5) K/mm3 RBC (4.1-5.6) M/mm3 Hgb (12.5-18.0) gm/dl Hct (42-50) % MCV (78-100) fl MCH (26-32) pg MCHC (32-36) g/dl RDW (11.5-14.0) % Plt Count (150-450) K/mm3 MPV (7.5-11.0) fl Gran % (36.0-66.0) % Eos # (Auto) (0-0.5) Absolute Lymphs (auto) (1.0-4.6) Absolute Monos (auto) (0.0-1.3) Lymphocytes % (24.0-44.0) % Monocytes % (0.0-12.0) % Eosinophils % (0.00-5.0) % Basophils % (0.0-0.4) % Absolute Granulocytes (1.4-6.9) Basophils # (0-0.4) Sodium (137-145) mmol/L Potassium (3.5-5.1) mmol/L Chloride (98-107) mmol/L Carbon Dioxide (22-30) mmol/L Anion Gap (5-15) MEQ/L BUN (9-20) mg/dL Creatinine (0.66-1.25) mg/dL Estimated GFR ML/MIN Glucose (74-106) mg/dL Calcium (8.4-10.2) mg/dL Magnesium 2.0 (1.6-2.3) mg/dL Urine Color (YELLOW) Urine Appearance (CLEAR) Urine pH (5-6) Ur Specific [place] (1.005-1.025) Urine Protein (Negative) Urine Ketones (NEGATIVE) Urine Blood (0-5) Josh/ul Urine Nitrite (NEGATIVE) Urine Bilirubin (NEGATIVE) Urine Urobilinogen (0-1) mg/dL Ur Leukocyte Esterase (NEGATIVE) Urine WBC (Auto) (0-5) /HPF Urine RBC (Auto) (0-2) /HPF U Hyaline Cast (Auto) (0-2) /LPF U Epithel Cells (Auto) (FEW) /HPF Urine Bacteria (Auto) (NEGATIVE) /HPF Urine Culture Reflexed (NO) Urine Glucose (NEGATIVE) mg/dL - Progress Progress: improved Counseled pt/family regarding: lab results, diagnosis, need for follow-up, rad results - Progress Progress Note: 10/27/20 20:39 Nontoxic in appearance. The patient presents in the context of known debility in which he has to use a walker and cane and wheelchair to get around his home. He had no fall and no complaints of chest pain or shortness of breath, urinary incontinence, bowel incontinence, or any additional signs of cauda equina at this time. CT abdomen and pelvis did not demonstrate any acute fractures and shows an age-indeterminate T12 fracture which may be the source of his pain. It appears the patient takes [place] at home as well. Incidental findings on CT abdomen pelvis also show a left pulmonary nodule and renal cyst. His remaining work-up is relatively benign. There is no evidence of AAA or any evidence of acute hemorrhage. I believe the patient can ambulate and has family members that are comfortable taking him home he can be discharged to follow-up with his primary care provider. If not, the patient may warrant admission for observation in order to go PT evaluation possible placement plus or minus MRI lumbar spine if the admitting physicians feel this is necessary. Patient care has been transitioned to Dr. Gonzalez. (YURI ADAMS) Patient reassessed. Patient ambulated with assistance. Patient appears to be functioning at his baseline. Patient states he is ready for discharge. He does not want to stay in the hospital. He agrees to follow-up with his primary care doctor within 48 hours for reevaluation. Patient voiced no other complaints at this time. 10/27/20 23:13 (JEANINE GONZALEZ) - Departure Departure Disposition: Home Critical Care Time: No - Departure Clinical Impression: Compression fracture of T12 vertebra with routine healing, Back pain, Pulmonary nodule, Renal cyst, Weakness Condition: Stable Referrals: JOSE SHELTON MD [Primary Care Provider] - Instructions: Low Back Pain (DC), Generalized Weakness (DC), Pulmonary Nodule Prescriptions: Lidocaine HCl 5% Patch [Lidoderm Patch 5%] 1 patch TOP DAILY #10 patch
[2020-10-27] MEDS ORDERED: NORCO 5/325 MG PO ONE (17:18)
[2020-10-27 17:58] LABS: Absolute Neutrophil Ct (ANC) 3.76 (1.4-6.9); BASOPHIL % 0.3 % (0.0-0.4); Basophil (Absolute #) 0.02 (0-0.4); Eosinophil % 2.1 % (0.00-5.0); Eosinophil (Absolute #) 0.13 (0-0.5); Hematocrit 38.5 % (42-50); Hemoglobin 12.3 gm/dl (12.5-18.0); Lymphocyte (Absolute #) 1.86 (1.0-4.6); Lymphocytes % 29.5 % (24.0-44.0); Mean Cell Volume 88.9 fl (78-100); Mean Corpuscular Hemoglobin 28.4 pg (26-32); Mean Corpuscular Hgb Concent. 31.9 g/dl (32-36); Mean Platelet Volume 9.8 fl (7.5-11.0); Monocyte (Absolute #) 0.53 (0.0-1.3); Monocytes % 8.4 % (0.0-12.0); Neutrophil % 59.7 % (36.0-66.0); Platelet Count 196 K/mm3 (150-450); Red Blood Count 4.33 M/mm3 (4.1-5.6); Red Cell Distribution Width 14.3 % (11.5-14.0); White Blood Count 6.3 K/mm3 (4.0-10.5)
[2020-10-27] MEDS ORDERED: NORCO 5/325 MG ONE (18:03)
[2020-10-27 18:12] LABS: BLOOD UREA NITROGEN 11 mg/dL (9-20); CHLORIDE 102 mmol/L (98-107); Calcium 8.3 mg/dL (8.4-10.2); Carbon Dioxide 30 mmol/L (22-30); Creatinine 1 0.65 mg/dL (0.66-1.25); EST GLOMERULAR FILTRATION RATE > 60.0 ML/MIN; Glucose 87 mg/dL (74-106); SODIUM 140 mmol/L (137-145)
[2020-10-27] MEDS ORDERED: Klor Con 10 MEQ PO ONE ×2 (18:29→19:40)
[2020-10-27] MEDS ORDERED: Magnesium Sulfate 1 GM/2 ML VIAL IV ONE (18:31)
[2020-10-27 19:16] LABS: Appearance CLEAR (CLEAR); Bacteria NONE SEEN /HPF (NEGATIVE); Bilirubin NEGATIVE (NEGATIVE); Blood MODERATE Ery/ul (0-5); Glucose NEGATIVE (NEGATIVE); Hyaline Casts 0-2 /LPF (0-2); Ketones NEGATIVE (NEGATIVE); Leukocyte Esterase NEGATIVE (NEGATIVE); Nitrite NEGATIVE (NEGATIVE); Protein,Urine Dip NEGATIVE (Negative); Specific Gravity 1.002 (1.005-1.025); Urobilinogen NEGATIVE mg/dL (0-1); WBC 0-2 /HPF (0-5)
[2020-10-27] MEDS ORDERED: Magnesium Sulfate 1 GM/2 ML VIAL ONE (19:40)
[2020-10-27] MEDS ORDERED: Magnesium 1 Gm / 100 Ml D5W*** 100 ML IV ONE (21:42)
[2020-10-27 22:45] VITALS: BP 141/93; PULSE 81; O2SAT 100
--- NOTE | 2020-10-28 22:40 | XRAY ---
Exam: CT of the abdomen and pelvis with IV contrast from 10/27/2020. CTDI: 4.93 mGy Comparison: None. Indication: 75-year-old male with acute abdominal pain; also back pain after lifting a heavy object 3 days ago. Technique: Post-IV contrast axial images were obtained through the abdomen and pelvis during automated injection of 80 ML's of Isovue 370 contrast material. Reconstructed coronal and sagittal images were created and reviewed. Findings: The heart size is mildly enlarged. Mild linear scarring/atelectasis is seen at the posterior medial aspect of each lung base, right greater than left. There is equivocal evidence of a 6 mm oval-shaped nodule adjacent to the scarring/atelectasis at the posterior medial left lung base (left lower lobe). Minimal compression atelectatic changes are seen within the right posterior lung sulcus. There is also some minimal linear scarring/atelectasis at both anterior lung bases. There is a mild hiatal hernia present. A small amount of intraperitoneal fat has also herniated along the right side of the hiatal hernia sac. The liver volume is within normal limits, although there is some elongation of the right hepatic lobe which may represent a normal variant of shape. No hepatic mass or intrahepatic biliary duct distention is seen. The gallbladder is distended. No posterior layering gallstones are seen. However, there is a small calcific density at the anterior right lateral margin of the gallbladder which may be within the wall or adherent to the wall. No extrahepatic biliary duct distention is seen. The spleen measures a maximum of 13.3 cm in craniocaudal dimension suggesting borderline splenomegaly. The pancreas and adrenal glands appear unremarkable. The kidneys are remarkable for a large 6.4 cm in diameter cyst within the lower pole of the right kidney. No solid renal mass, renal calculi, or hydronephrosis is seen. The delayed images reveal adequate function of both kidneys. Portions of both ureters are opacified on the delayed images as well. The abdominal aorta is mildly calcified and tortuous. No abdominal aortic aneurysm or abnormal retroperitoneal lymphadenopathy is seen. Minimal protrusion of intraperitoneal fat into the subcutaneous fat is seen at the level of the umbilicus on midline sagittal image #85. No bowel containing ventral hernia is seen. There is no free intraperitoneal air. Scattered stool is seen throughout the colon. There is no evidence of bowel obstruction or bowel wall thickening. A normal appendix is seen within the right lower quadrant. This is best seen on the coronal images. I believe there is some mild sigmoid colon diverticulosis without evidence of diverticulitis. The urinary bladder reveals no significant abnormality. The prostate gland is enlarged measuring 5.8 cm in width and 4.3 cm in AP depth on delayed axial image #66. I see no abnormal pelvic lymphadenopathy or free intraperitoneal fluid. There is a mild central superior vertebral endplate T12 compression fracture deformity with slight anterior wedging of T12, but there is greater loss of the mid T12 vertebral body height. Although slight anterior wedging is seen of T12 on the lateral chest radiograph from 06/28/2018, I do not appreciate the now seen central superior vertebral endplate T12 compression. Therefore, I believe this may be acute. There is no other fracture within the visualized lower thoracolumbar spine. Moderate degenerative disc disease is seen at L2-L3 with minimal retrolisthesis of L2 with respect to L3. I also see mild to moderate degenerative disc disease at L4-L5 and L5-S1. 2 orthopedic pins traverse the right femoral neck extending to the right femoral head. There is dysplastic change of the right femoral head with marked narrowing of the right hip joint space and subchondral cyst formation on both sides the joint space. Some superior lateral acetabular spurring is seen. The findings are consistent with severe osteoarthritis, likely posttraumatic. Impression: 1. There is a mild central superior vertebral endplate T12 fracture deformity with some concomitant slight anterior wedging of T12. The anterior wedging is unchanged from a previous lateral chest radiograph from 06/28/2018, but the central compression of the superior T12 vertebral endplate appears to be new. Therefore, this is worrisome for an acute fracture. 2. Other skeletal findings, as discussed above. 3. Questionable 6 mm pulmonary nodule at the posterior medial left lung base. This is noted adjacent to some linear scarring/atelectasis. 4. Mild hiatal hernia, borderline splenomegaly, and a prominent lower pole right renal cyst are seen. 5. I note a 3 mm calcification adjacent to the lateral border of the gallbladder lumen. This may represent a calcification within the gallbladder wall or perhaps a calcification that is adherent to the inner wall of the gallbladder. No posterior layering gallstones or biliary duct distention is seen. 6. Normal appendix. 7. Moderate retained colonic stool and mild diverticulosis of sigmoid colon without evidence of diverticulitis. There is no bowel obstruction. 8. Prostatomegaly.
== END 2020-10-28 00:05 | disposition home or self-care (01) ==
LOC: ED 16:58
DX: M48.54XA Collapsed vertebra, not elsewhere classified, thoracic region, initial encounter for fracture (principal); R53.1 Weakness; M25.562 Pain in left knee; Z79.899 Other long term (current) drug therapy; Z79.01 Long term (current) use of anticoagulants; I48.91 Unspecified atrial fibrillation; R10.9 Unspecified abdominal pain; Z86.73 Personal history of transient ischemic attack (TIA), and cerebral infarction without residual deficits; I10 Essential (primary) hypertension; R91.1 Solitary pulmonary nodule; N28.1 Cyst of kidney, acquired
CPT/HCPCS: 36000; 36415; 74177; 80048; 81001; 83735; 85025; 87086; 99284; P9612; J3475; A9270-GY

== ENCOUNTER 2021-03-12 15:01 | Emergency (ER) | payer MEDICARE, OTHER ==
[2021-03-12] MEDS ORDERED: Sodium Chloride 0.9% 1000 ML 1,000 ML IV SCH (15:15)
--- NOTE | 2021-03-12 15:20 | ERPHSYRPT ---
- History of Present Illness Time Seen by Provider: 03/12/21 15:15 Source: patient, family Physician History: pt is 75 yr old who felt unsteady and fell against his couch striking left ribs and abd and has tenderness there. Neuro is intact and fundi benign - no focal deficits. reflexes normal and symmetrical. no peritoneal signs but left UQ tenderness. full ROM hips bilaterally without pain. chronic DJD and uses left knee brace. distal neurovasc intact. no head injury or neck pain all nontender with full ROM. Occurred: just prior to arrival Reason for Fall: lost balance Injuries/Pain Location: chest, abdomen Loss of Consciousness: no loss of consciousness Quality: sharpness, stabbing Severity of Pain-Max: moderate Severity of Pain-Current: moderate Modifying Factors: Improves With: movement Associated Symptoms (Fall): abdominal pain Allergies/Adverse Reactions: No Known Drug Allergies Allergy (Verified 06/12/17 13:57) Home Medications: Alprazolam 0.25 mg PO TIDPRN 09/07/13 [History] Amlodipine Besylate 5 mg [Norvasc 5 mg] 5 mg PO DAILY 09/07/13 [History] Omeprazole [Prilosec] 40 mg PO DAILY 09/07/13 [History] Pravastatin Sodium 10 mg PO HS 09/07/13 [History] lisinopriL [Zestril 40 mg] 10 mg PO BID 09/07/13 [History] Carvedilol 6.25 mg [Coreg 6.25 MG] 6.25 mg BID 08/29/16 [History] Hydralazine HCl 25 mg TID 08/29/16 [History] Apixaban [Eliquis] 5 mg PO BID 11/20/19 [History] Diclofenac Sodium Gel [Voltaren GEL] 2 gm TOP QID 10/27/20 [History] Hydrocodone/Acetaminophen [Hydrocodone-Acetamin 5-325 mg] 5 - 325 mg PO BID 10/27/20 [History] Furosemide 20 mg [Lasix 20 mg] 20 mg PO DAILY 03/12/21 [History] Hx Tetanus, Diphtheria Vaccination/Date Given: Yes Hx Influenza Vaccination/Date Given: Yes Hx Pneumococcal Vaccination/Date Given: Yes Travel Risk - Vaccine Status Have you recieved a Covid-19 vaccination: No - Review of Systems Constitutional: No Fever, No Chills Eyes: No Symptoms Ears, Nose, & Throat: No Symptoms Respiratory: No Cough, No Dyspnea Cardiac: Other (left rib tenderness), No Chest Pain, No Edema, No Syncope Abdominal/Gastrointestinal: Abdominal Pain, No Nausea, No Vomiting, No Diarrhea Genitourinary Symptoms: No Dysuria Musculoskeletal: No Back Pain, No Neck Pain Skin: No Rash Neurological: No Dizziness, No Focal Weakness, No Sensory Changes Psychological: No Symptoms Endocrine: No Symptoms Hematologic/Lymphatic: No Symptoms Immunological/Allergic: No Symptoms All Other Systems: Reviewed and Negative - Past Medical History Pertinent Past Medical History: Yes Neurological History: TIA ENT History: No Pertinent History Cardiac History: Hypertension Respiratory History: No Pertinent History Endocrine Medical History: No Pertinent History Musculoskeletal History: Osteoarthritis GI Medical History: No Pertinent History History: No Pertinent History Psycho-Social History: No Pertinent History Male Reproductive Disorders: No Pertinent History Other Medical History: A-Fib, Hypercholesterolemia, states had a left hip surgery of some kind in June of 1960 - Past Surgical History Past Surgical History: Yes Neuro Surgical History: No Pertinent History Cardiac: No Pertinent History Respiratory: No Pertinent History Gastrointestinal: No Pertinent History Genitourinary: No Pertinent History Musculoskeletal: Orthopedic Surgery Male Surgical History: No Pertinent History Other Surgical History: TONSILLECTOMY - Social History Smoking Status: Current every day smoker How long have you smoked: years Exposure to second hand smoke: Yes Alcohol Use: Socially Drug Use: none Patient Lives Alone: Yes Significant Family History: hypertension - Nursing Vital Signs Nursing Vital Signs: Initial Vital Signs Temperature 98.9 F 03/12/21 15:10 Pulse Rate 76 03/12/21 15:10 Respiratory Rate 20 03/12/21 15:10 Blood Pressure 129/80 03/12/21 15:10 O2 Sat by Pulse Oximetry 98 03/12/21 15:10 Pain Scale Pain Intensity 4 - Nikole Coma Score Best Eye Response (Nikole): (4) open spontaneously Best Verbal Response (Mayo): (5) oriented Best Motor Response (Mayo): (6) obeys commands Mayo Total: 15 - Physical Exam General Appearance: no apparent distress, alert Head Injury: no evidence of injury Eye Exam: PERRL/EOMI ENT Exam: airway nml Neck Exam: normal inspection, No tenderness Respiratory/Chest Exam: normal breath sounds, rib tenderness, No chest tenderness, No respiratory distress Cardiovascular Exam: normal heart sounds, regular rate/rhythm Gastrointestinal Exam: soft, tenderness, No distention, No guarding, No ecchymosis Rectal Exam: deferred Back Exam: normal inspection, No vertebral tenderness Extremity Exam: normal inspection, normal range of motion, pelvis stable, No deformities Peripheral Pulses: carotid (R): 2+, carotid (L): 2+, femoral (R): 2+, femoral (L): 2+, dorsalis-pedis (R): 2+, dorsalis-pedis (L): 2+ Neurologic Exam: alert, oriented x 3, cooperative, 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 nml as tested, nml cerebellar function, sensation nml, No motor deficits Skin Exam: normal color, warm, dry - Course Nursing assessment & vital signs reviewed: Yes EKG Interpreted by Me: A-fib, Right Hawthorne Deviation, Non-specific ST Changes - Radiology Exams Chest X-ray Interpretation: Teleradiologist Report, No Fracture, Infiltrates, Other (cardiomegally) - CT Exams Abdomen/Pelvis CT Interpretation: Tele-radiologist Report, Pneumonia (T 12 compression Fx, renal cyst) Ordered Tests: Active Orders 24 hr Category Date Time Status EKG-ER Only STAT Care 03/12/21 15:11 Active IV Insertion STAT Care 03/12/21 15:11 Active ABDOMEN AND PELVIS W/0 CONTRAS [CT] Stat Exams 03/12/21 15:13 Completed CHEST 2 VIEWS (PA AND LAT) Stat Exams 03/12/21 15:12 Completed AMYLASE Stat Lab 03/12/21 16:00 Completed CBC W DIFF Stat Lab 03/12/21 16:00 Completed CMP Stat Lab 03/12/21 16:00 Completed D-DIMER QUANTITATIVE Stat Lab 03/12/21 16:24 Ordered LIPASE Stat Lab 03/12/21 16:00 Completed Lactic Acid Stat Lab 03/12/21 16:00 Completed NT PRO BNP Stat Lab 03/12/21 16:24 Ordered TROPONIN Q3H Lab 03/12/21 15:15 Ordered TROPONIN Q3H Lab 03/12/21 18:15 Ordered TROPONIN Q3H Lab 03/12/21 21:15 Ordered TROPONIN Q3H Lab 03/13/21 00:15 Ordered TROPONIN Q3H Lab 03/13/21 03:15 Ordered UA W/RFX UR CULTURE Stat Lab 03/12/21 16:38 Ordered Medication Summary Generic Name Dose Route Start Last Admin Trade Name Dang PRN Reason Stop Dose Admin Sodium Chloride 1,000 mls @ 100 mls/hr 03/12/21 15:15 03/12/21 15:22 Sodium Chloride 0.9% 1000 Ml IV 04/11/21 15:14 Not Given .Q10H [facility] Lab/Rad Data: Laboratory Result Diagrams 03/12/21 16:00 03/12/21 16:00 Laboratory Results 03/12/21 03/12/21 03/12/21 Range/Units 16:00 16:00 16:00 WBC 3.8 L (4.0-10.5) K/mm3 RBC 4.59 (4.1-5.6) M/mm3 Hgb 13.0 (12.5-18.0) gm/dl Hct 41.4 L (42-50) % MCV 90.2 (78-100) fl MCH 28.3 (26-32) pg MCHC 31.4 L (32-36) g/dl RDW 13.6 (11.5-14.0) % Plt Count 115 L (150-450) K/mm3 MPV 10.1 (7.5-11.0) fl Gran % 59.8 (36.0-66.0) % Eos # (Auto) 0 (0-0.5) Absolute Lymphs (auto) 1.32 (1.0-4.6) Absolute Monos (auto) 0.21 (0.0-1.3) Lymphocytes % 34.4 (24.0-44.0) % Monocytes % 5.5 (0.0-12.0) % Eosinophils % 0.0 (0.00-5.0) % Basophils % 0.3 (0.0-0.4) % Absolute Granulocytes 2.30 (1.4-6.9) Basophils # 0.01 (0-0.4) Sodium 135 L (137-145) mmol/L Potassium 4.3 (3.5-5.1) mmol/L Chloride 97 L (98-107) mmol/L Carbon Dioxide 30 (22-30) mmol/L Anion Gap 12.3 (5-15) MEQ/L BUN 13 (9-20) mg/dL Creatinine 0.83 (0.66-1.25) mg/dL Estimated GFR > 60.0 ML/MIN Glucose 91 (74-106) mg/dL Lactic Acid 0.7 (0.4-2.0) Calcium 8.0 L (8.4-10.2) mg/dL Total Bilirubin 0.60 (0.2-1.3) mg/dL AST 31 (17-59) U/L ALT 15 (0-50) U/L Alkaline Phosphatase 81 (38-126) U/L Serum Total Protein 6.9 (6.3-8.2) g/dL Albumin 3.9 (3.5-5.0) g/dL Amylase 69 (30-110) U/L Lipase 89 (23-300) U/L - Progress Progress: improved, re-examined Progress Note: 03/12/21 16:45 pt is feeling well and not short of breath, he wishes to go home and we have offered admission for Tx of his pneumonia and compression Fx vertebra and furhter workup for his unsteadiness and gait training for his fall, and that without this further harm could occur and that their could be missed pathology such as a PE or sepsis , or other evolving pathology and that he could also fall again. He understands and has the capacity to decline this and make this choice. 03/12/21 16:48 Counseled pt/family regarding: lab results, diagnosis, need for follow-up, rad results - Departure Departure Disposition: Home Clinical Impression: Fall from ground level, Compression fracture of T12 vertebra with routine healing, Pneumonia Condition: Good Critical Care Time: No Referrals: JOSE SHELTON MD [Primary Care Provider] - Follow up/PCP as directed Instructions: Pneumonia, Adult (DC), Bruised Rib, Vertebral Compression Fracture (DC), Preventing Falls in the Older Adult Additional Instructions: there is new pneumonia and a vertebral compression fracture and heart enlargement requiring treatment with your Dr. HAILE. There may be additional complications evolving undetected including blood clots to lungs , heart conditions, and could even lead to or further harm- so followup and treatment are important ' return meantime if further symptoms or concerns. followup to prevent falls as well. Prescriptions: Levofloxacin [Levaquin] 500 mg PO DAILY #10 tablet
--- NOTE | 2021-03-12 16:10 | XRAY ---
Indication: Rib fracture from trauma. Comparison: June 28, 2018. Portable chest remains hyperinflated with new right base infiltrate/atelectasis and cardiomegaly. Remaining lungs clear. Bony thorax intact again with osteopenia and degenerative changes.
[2021-03-12 16:13] VITALS: BP 122/91; PULSE 64; O2SAT 97
[2021-03-12 16:14] LABS: BASOPHIL % 0.3 % (0.0-0.4); Basophil (Absolute #) 0.01 (0-0.4); Eosinophil (Absolute #) 0 (0-0.5); Hematocrit 41.4 % (42-50); Lymphocyte (Absolute #) 1.32 (1.0-4.6); Lymphocytes % 34.4 % (24.0-44.0); Mean Cell Volume 90.2 fl (78-100); Mean Corpuscular Hemoglobin 28.3 pg (26-32); Mean Corpuscular Hgb Concent. 31.4 g/dl (32-36); Mean Platelet Volume 10.1 fl (7.5-11.0); Monocyte (Absolute #) 0.21 (0.0-1.3); Monocytes % 5.5 % (0.0-12.0); Neutrophil % 59.8 % (36.0-66.0); Platelet Count 115 K/mm3 (150-450); Red Blood Count 4.59 M/mm3 (4.1-5.6); Red Cell Distribution Width 13.6 % (11.5-14.0); White Blood Count 3.8 K/mm3 (4.0-10.5)
--- NOTE | 2021-03-12 16:14 | XRAY ---
Indication: Left abdomen tenderness following fall. Multiple contiguous axial images obtained through the abdomen and pelvis without contrast. Comparison: October 27, 2020. Lung bases demonstrates new large posterior right lower lobe consolidating airspace disease with effusion. Also new small focus lingula airspace disease with tiny effusion. Stable medial left base subsegmental atelectasis/scarring. Heart is now enlarged. Again small hard hernia with partial intrathoracic stomach. Noncontrasted stomach and bowel loops appear nonobstructed. Appendix not seen. Stable 6.4 cm right lower renal cyst and enlarged prostate gland. No free fluid/air. Remaining liver, gallbladder, pancreas, spleen, adrenal glands, left kidney, ureters, and bladder appear unremarkable for noncontrast exam. Minimal aortoiliac calcifications without AAA. Osseous structures demonstrates new acute to subacute appearing T12 compression fracture with approximately 50-75% height loss. Elsewhere stable osteopenia, multilevel lumbar degenerative spondylosis, mild levoscoliosis, advanced right shoulder degenerative arthropathy, and old proximal right femur fracture with 2 orthopedic K wires. Impression: 1. New large right lung base consolidating airspace disease with effusion and small lingula airspace disease. 2. New cardiomegaly. 3. New acute to subacute T12 compression fracture without spinal canal encroachment. 4. Stable large right renal cyst, enlarged prostate gland, hiatal hernia, and chronic bony findings.
[2021-03-12 16:17] LABS: ALBUMIN 3.9 g/dL (3.5-5.0); ALKALINE PHOSPHATASE 81 U/L (38-126); AMYLASE 69 U/L (30-110); BLOOD UREA NITROGEN 13 mg/dL (9-20); Carbon Dioxide 30 mmol/L (22-30); Creatinine 1 0.83 mg/dL (0.66-1.25); EST GLOMERULAR FILTRATION RATE > 60.0 ML/MIN; Glucose 91 mg/dL (74-106); LIPASE 89 U/L (23-300); Potassium 4.3 mmol/L (3.5-5.1); SGOT/AST 31 U/L (17-59); SGPT/ALT 15 U/L (0-50); SODIUM 135 mmol/L (137-145); Total Protein 6.9 g/dL (6.3-8.2)
[2021-03-12 16:19] LABS: CHLORIDE 97 mmol/L (98-107)
[2021-03-12 16:26] LABS: ANION GAP 12.3 MEQ/L (5-15)
[2021-03-12 16:49] LABS: Appearance CLEAR (CLEAR); Bilirubin NEGATIVE (NEGATIVE); Blood SMALL Ery/ul (0-5); Glucose NEGATIVE (NEGATIVE); Ketones NEGATIVE (NEGATIVE); Leukocyte Esterase NEGATIVE (NEGATIVE); Mucus SLIGHT /HPF (NEGATIVE); Nitrite NEGATIVE (NEGATIVE); Protein,Urine Dip NEGATIVE (Negative); Specific Gravity 1.011 (1.005-1.025); Urobilinogen NEGATIVE mg/dL (0-1)
[2021-03-12 16:50] LABS: Bacteria NONE SEEN /HPF (NEGATIVE)
[2021-03-12] MEDS ORDERED: Levofloxacin 250MG Tablet PO ONE (16:55)
[2021-03-12] MEDS ORDERED: Levofloxacin 250MG Tablet ONE (16:58)
== END 2021-03-12 17:15 | disposition home or self-care (01) ==
LOC: ED 15:01
DX: S22.080A Wedge compression fracture of T11-T12 vertebra, initial encounter for closed fracture (principal); W01.190A Fall on same level from slipping, tripping and stumbling with subsequent striking against furniture, initial encounter; Y92.009 Unspecified place in unspecified non-institutional (private) residence as the place of occurrence of the external cause; J18.9 Pneumonia, unspecified organism; R10.9 Unspecified abdominal pain; E78.00 Pure hypercholesterolemia, unspecified; I10 Essential (primary) hypertension; Z72.0 Tobacco use; Z79.01 Long term (current) use of anticoagulants; Z79.891 Long term (current) use of opiate analgesic
CPT/HCPCS: 36415; 71046; 74176; 80053; 81001; 82150; 83605; 83690; 83880; 84484; 85025; 85379; 93005; 99284; A9270-GY